=== PATIENT | male | born 1960 | race American Indian/Alaskan Native ===

== ENCOUNTER 2017-09-21 11:16 | Emergency (ER) | payer SELFPAY ==
[2017-09-21 11:28] VITALS: BMI 20.3
[2017-09-21 11:30] VITALS: TEMP 98.3; O2SAT 100
[2017-09-21] MEDS ORDERED: Oxycodone/Acetaminophen 5/325 mg Tab PO STA (12:13)
--- NOTE | 2017-09-21 12:42 | RAD ---
PROCEDURE: Radiographs of the Right Shoulder HISTORY: Atraumatic pain COMPARISON: No prior. FINDINGS: BONES: Normal. No fracture. JOINTS: There is mild degenerative osteoarthrosis in the acromioclavicular joint. The glenohumeral joint is normal. SOFT TISSUES: Normal. OTHER FINDINGS: None. IMPRESSION: No acute fracture or dislocation. 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
--- NOTE | 2017-09-21 12:46 | RAD ---
PROCEDURE: Cervical Spine Radiographs. HISTORY: Pain. COMPARISON: None. FINDINGS: BONES: There is straightening of the cervical spine with loss of normal cervical lordosis. There is mild degenerative retrolisthesis of C5 on C6. Vertebral height is normal. There is no acute fracture or traumatic anterior listhesis. The craniocervical junction is normal. The atlantoaxial joint is normal. DISC SPACES: There is advanced multilevel degenerative disc disease with anterior osteophytes, reduced disc heights and multilevel facet arthropathy, worse at C5-6. SOFT TISSUES: Normal. No prevertebral soft tissue swelling. OTHER FINDINGS: None. IMPRESSION: Advanced multilevel degenerative disc disease, worse at C5-6 with mild degenerative retrolisthesis of C5 on C6. Straightening of the cervical spine may be positional or related to muscle spasm.
[2017-09-21] MEDS ORDERED: Oxycodone/Acetaminophen 5/325 mg Tab ONE (12:48)
--- NOTE | 2017-09-21 13:22 | C.PDOC ---
History Of Present Illness 57 year old male presents to the ER with a complaint of right shoulder pain for the past 3 weeks that radiates down to the right thumb. Patient states the pain is worse at night but not so bad during the day. He has been taking motrin at home with no relief. Denies weakness or numbness. Chief Complaint (Nursing): Upper Extremity Problem/Injury History Per: Patient History/Exam Limitations: no limitations Onset/Duration Of Symptoms: Days Current Symptoms Are (Timing): Still Present Recent travel outside of the [place]: No Past Medical History Reviewed: Historical Data, Nursing Documentation, Vital Signs Vital Signs: Last Vital Signs Temp 98.3 F 09/21/17 11:28 Pulse 61 09/21/17 13:59 Resp 16 09/21/17 13:59 BP 159/83 H 09/21/17 13:59 Pulse Ox 100 09/21/17 14:29 Family History: States: Unknown Family Hx - Social History Hx Alcohol Use: Yes Hx Substance Use: No - Immunization History Hx Tetanus Toxoid Vaccination: No Hx Influenza Vaccination: Yes Hx Pneumococcal Vaccination: No Review Of Systems Musculoskeletal: Positive for: Shoulder Pain (Right), Hand Pain (Radiating from right shoulder) Neurological: Negative for: Weakness, Numbness Physical Exam - Physical Exam Appears: Non-toxic, No Acute Distress Skin: Normal Color, Warm, Dry Head: Atraumatic, Normacephalic Eye(s): bilateral: Normal Inspection Neck: Other (Right paraspinal muscle spasm) Extremity: Normal ROM (x4), Tenderness (Right shoulder), No Deformity Pulses: Left Radial: Normal, Right Radial: Normal Neurological/Psych: Oriented x3, Normal Speech, Normal Motor, Normal Sensation ED Course And Treatment O2 Sat by Pulse Oximetry: 100 (Room air) Pulse Ox Interpretation: Normal - Other Rad Right shoulder x-ray X-Ray: Viewed By Me, Read By Radiologist Interpretation: PROCEDURE: Radiographs of the Right Shoulder. HISTORY: Atraumatic pain. COMPARISON: No prior. FINDINGS: BONES: Normal. No fracture. JOINTS: There is mild degenerative osteoarthrosis in the acromioclavicular joint. The glenohumeral joint is normal. SOFT TISSUES: Normal. OTHER FINDINGS: None. IMPRESSION: No acute fracture or dislocation. 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 Cervical spine x-ray X-Ray: Viewed By Me, Read By Radiologist Interpretation: PROCEDURE: Cervical Spine Radiographs. HISTORY: Pain. COMPARISON: None. FINDINGS: BONES: There is straightening of the cervical spine with loss of normal cervical lordosis. There is mild degenerative retrolisthesis of C5 on C6. Vertebral height is normal. There is no acute fracture or traumatic anterior listhesis. The craniocervical junction is normal. The atlantoaxial joint is normal. DISC SPACES: There is advanced multilevel degenerative disc disease with anterior osteophytes, reduced disc heights and multilevel facet arthropathy, worse at C5-6. SOFT TISSUES: Normal. No prevertebral soft tissue swelling. OTHER FINDINGS: None. IMPRESSION: Advanced multilevel degenerative disc disease, worse at C5-6 with mild degenerative retrolisthesis of. C5 on C6. Straightening of the cervical spine may be positional or related to muscle spasm. Progress Note: Cervical spine x-ray and right shoulder x-ray ordered. Percocet administered with relief. Patient advised to follow up with ortho for further evaluation. Disposition - Disposition Referrals: Jerry Hogan III, MD [Staff Provider] - Disposition: HOME/ ROUTINE Disposition Time: 13:22 Condition: STABLE Additional Instructions: Follow up with PMD and Orthopedist anabell 1-2 days. Return to ED if feel worse. Prescriptions: Ibuprofen [Motrin Tab] 600 mg PO Q8 #30 tab oxyCODONE/Acetaminophen [Percocet 5/325 mg Tab] 1 tab PO QID PRN #20 tab PRN Reason: Pain diaZEpam [Valium] 2 mg PO TID #15 tab Instructions: Shoulder Pain (DC) Forms: M2G (Lao) - Clinical Impression Clinical Impression: Shoulder pain - PA / [employer]INE[employer] / Resident Statement MD/DO has reviewed & agrees with the documentation as recorded. - Scribe Statement The provider has reviewed the documentation as recorded by the Scribe Edward Alonzo All medical record entries made by the Scribe were at my direction and personally dictated by me. I have reviewed the chart and agree that the record accurately reflects my personal performance of the history, physical exam, medical decision making, and the department course for this patient. I have also personally directed, reviewed, and agree with the discharge instructions and disposition.
[2017-09-21 14:00] VITALS: BP 159/83; PULSE 61; RESP 16
== END 2017-09-21 14:00 | disposition home or self-care (01) ==
LOC: C.ER 11:16
DX: M25.511 Pain in right shoulder (principal)